=== PATIENT | female | born 1960 | race Caucasian/White ===

== ENCOUNTER 2019-12-14 09:56 | Day surgery (SDC) | payer OTHER, SELFPAY ==
[~2019-12-14] VITALS: Ht 170.2 cm; Wt 95.3 kg
[~2019-12-14 09:56] MED LIST: ALBUTEROL MDI
[2019-12-14] MEDS ORDERED: fentaNYL citrate 0.05 MG/ML VIAL ONE (11:52)
[2019-12-14] MEDS ORDERED: diphenhydrAMINE 50 MG/ML VIAL ONE (11:53)
[2019-12-14] MEDS ORDERED: MIDAZOLAM 5 MG/5 ML VIAL ONE (11:53)
[2019-12-14] MEDS ORDERED: LIDOCAINE VISCOUS 2% 20 ML UDC ONE (11:53)
[2019-12-14] MEDS ORDERED: diphenhydrAMINE 50 MG/ML VIAL IVP ONE (13:00)
[2019-12-14] MEDS ORDERED: fentaNYL citrate 0.05 MG/ML VIAL IVP ONE (13:00)
[2019-12-14] MEDS ORDERED: MIDAZOLAM 2 MG/2 ML VIAL IVP ONE (13:00)
[2019-12-14] MEDS ORDERED: ACETAMINOPHEN 325 MG SUPP RC PRN (14:00)
[2019-12-14] MEDS ORDERED: ACETAMINOPHEN 650 MG/20.3 ML UDC GT PRN (14:10)
[2019-12-14] MEDS ORDERED: SIMETHICONE 40 MG/0.6 ML PO SCH (14:30)
== END 2019-12-14 14:35 | disposition home or self-care (01) ==
LOC: MDS 09:56 → MFCC 10:23 → MDS 14:35
PROVIDERS: ATTEND Internal Medicine Gastroenterology
DX: K59.00 Constipation, unspecified (principal); K63.5 Polyp of colon; K29.70 Gastritis, unspecified, without bleeding; K29.80 Duodenitis without bleeding; F06.4 Anxiety disorder due to known physiological condition; F17.200 Nicotine dependence, unspecified, uncomplicated; M19.90 Unspecified osteoarthritis, unspecified site; Z98.890 Other specified postprocedural states; Z88.8 Allergy status to other drugs, medicaments and biological substances; Z79.899 Other long term (current) drug therapy; Z20.828 Contact with and (suspected) exposure to other viral communicable diseases
CPT/HCPCS: 43239; 45385; 81025; 88305; 88312; 88313; J1200; J2250; J3010; U0003

== ENCOUNTER 2020-05-28 13:04 | Emergency (ER) | payer OTHER, SELFPAY ==
[~2020-05-28] VITALS: Ht 170.2 cm; Wt 95.3 kg
[2020-05-28 13:11] VITALS: BP 157/77
--- NOTE | 2020-05-28 13:16 | NUR ---
PT W/C ASSISTED TO BED 9
--- NOTE | 2020-05-28 13:19 | NUR ---
ZACHERY SEXTON AT BEDSIDE FOR EVALUATION
--- NOTE | 2020-05-28 13:20 | NUR ---
59 Y/O FEMALE C/O L ANKLE PAIN x1 WEEK. PT DENIES ANY TRAUMA/INJURY. VISITED PCP WHERE XRAY SHOWED SOFT TISSUE SWELLING AND Rx STEROIDS AND NORCO WITH NO RELIEF. PT STATES PAIN IS 8/10 THAT "FEELS LIKE ITS GOING TO EXPLODE" AND "FEELS LIKE A METAL CHARLES IS GOING THROUGH THE BOTTOM OF THE FOOT". PT TOOK NORCO THIS AM WITH NO RELIEF. +NAUSEA DUE TO NORCO. DENIES V/D/SOB. ON ASSESSMENT, LIMITED ROM, SWELLING OF LEFT ANKLE, <3 SECONDS CAP REFILL WITH +2 EQUAL BILATERAL PEDAL PULSES. PT STATES PAIN IS WORSE WITH AMBULATION. PT AMBULATED WITH CANE. PT IS A/O X4 WITH EVEN AND UNLABORED RESPIRATIONS. PT LAYING IN BED WITH BED IN LOWEST POSITION, BRAKES LOCKED, X1 SIDERAIL UP. Hx CARDIAC WITH PACEMAKER IMPLANTED 02/2020, ARTHRITIS, CHRONIC PANCREATITIS ALLERGIES: COMPAZINE, DEMEROL, IMITREX
[2020-05-28] MEDS ORDERED: MORPHINE SULFATE 4 MG/ML SYR IM ONE (13:25)
--- NOTE | 2020-05-28 13:56 | NUR ---
PT TAKEN TO CT VIA MASTER
[2020-05-28 15:25] VITALS: BP 157/77
--- NOTE | 2020-05-28 15:28 | NUR ---
Patient discharged with v/s stable. Written and verbal after care instructions given and explained. Patient verbalized understanding. Ambulatory with steady gait. All questions addressed prior to discharge. Advised to follow up with PMD.
== END 2020-05-28 15:28 | disposition home or self-care (01) ==
LOC: MED 13:04
DX: M25.572 Pain in left ankle and joints of left foot (principal); J45.909 Unspecified asthma, uncomplicated; Z88.5 Allergy status to narcotic agent; Z88.8 Allergy status to other drugs, medicaments and biological substances; Z90.49 Acquired absence of other specified parts of digestive tract; Z95.0 Presence of cardiac pacemaker; Z98.890 Other specified postprocedural states
CPT/HCPCS: 73700; 96372; 99284; J2270

== ENCOUNTER 2020-06-25 20:41 | Emergency (ER) | payer OTHER ==
[~2020-06-25] VITALS: Ht 170.2 cm; Wt 95.3 kg
--- NOTE | 2020-06-25 21:45 | NUR ---
TO ER BED 4
[2020-06-25 21:48] VITALS: BP 156/79
[2020-06-25] MEDS ORDERED: ONDANSETRON 4 MG/2 ML VIAL IVP ONE (22:05)
[2020-06-25] MEDS ORDERED: KETOROLAC 30 MG/ML VIAL IVP ONE (22:05)
[2020-06-25] MEDS ORDERED: NACL 0.9% 1,000 ML IV SCH (22:05)
--- NOTE | 2020-06-25 22:05 | NUR ---
59 Y/O F BIB SELF FROM HOME, PATIENT PRESENTS TO ED WITH ABD PAIN THAT STARTED 06/20/20 WITH N&V. PT STATES SHE THINKS IT MIGHT BE PANCREATITIS, SHE HAD IT A YEAR AGO, PT TOOK PAIN MEDS THIS MORNING 2 PO NORCO 5MH, NO RELIEF. PT STATES SHE IS CONSTIPATED WITH LAST BM 06/24/20; SKIN IS PINK/WARM/DRY; AAOX4 WITH EVEN AND STEADY GAIT WITH ASSISTIVE DEVICE; LUNGS CLEAR BL; HR EVEN AND REGULAR; PT DENIES ANY FEVER, CP, SOB, OR COUGH AT THIS TIME; PATIENT STATES PAIN OF 8/10 AT THIS TIME; VSS; PATIENT POSITIONED FOR COMFORT; HOB ELEVATED; BEDRAILS UP X2; BED DOWN. ER MD MADE AWARE OF PT STATUS. ALLERGY: DEMEROL AND COMPAZINE. 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
[2020-06-25 22:22] LABS: APPEARANCE,URINE CLEAR (CLEAR); BILIRUBIN,URINE NEGATIVE (NEGATIVE); BLOOD, URINE TRACE-I (NEGATIVE); COLOR,URINE YELLOW (YELLOW); LEUKOCYTE ESTERASE ,URINE 2+ (NEGATIVE); NITRITE, URINE NEGATIVE (NEGATIVE); PH,URINE 6.5 (5.0-9.0); UGLUCOSE NEGATIVE (NEGATIVE)
[2020-06-25 22:23] LABS: BASOPHILS # (AUTO) 0.1 K/uL (0.00-0.22); BASOPHILS % (AUTO) 1.2 % (0.0-2.0); EOSINOPHILS # (AUTO) 0.1 K/uL (0-0.4); EOSINOPHILS % (AUTO) 2.2 % (0.0-4.0); HEMATOCRIT 42.9 % (36-48); HEMOGLOBIN 14.9 g/dL (12.0-16.0); MEAN CORPUSCULAR HEMOGLOBIN 30 pg (27-31); MEAN CORPUSCULAR HGB CONC 35 g/dL (33-37); MEAN CORPUSCULAR VOLUME 86.6 fL (80-94); MONOCYTES # (AUTO) 0.3 K/uL (0.8-1.0); MONOCYTES % (AUTO) 4.8 % (1.7-9.3); NEUTROPHILS # (AUTO) 4.1 K/uL (1.8-7.7); NEUTROPHILS % (AUTO) 61.8 % (42.2-75.2); PLATELET COUNT (AUTO) 210 K/uL (140-450); RED BLOOD CELL COUNT(AUTO) 4.96 MIL/uL (4.20-5.40); RED CELL DISTRIBUTION WIDTH 12.9 % (11.6-13.7); WHITE BLOOD COUNT (AUTO) 6.7 K/uL (4.8-10.8)
[2020-06-25] MEDS ORDERED: MORPHINE SULFATE 4 MG/ML SYR IVP ONE (22:30)
--- NOTE | 2020-06-25 22:35 | NUR ---
X RAY AT BEDSIDE
[2020-06-25 22:40] LABS: ALBUMIN 3.9 g/dL (3.4-5.0); ANION GAP 14.1 (8-16); CARBON DIOXIDE 25.9 mmol/L (21-32); CREATININE 0.8 mg/dL (0.6-1.3); TOTAL BILIRUBIN 0.4 mg/dL (0.0-1.0)
[2020-06-25 22:43] LABS: RBC,URINE 0-5 /HPF (0-5)
[2020-06-25] MEDS ORDERED: ONDA8TAB87 PO (22:59)
[2020-06-25] MEDS ORDERED: OMEP40EC24 PO (22:59)
[2020-06-26] MEDS ORDERED: MORPHINE SULFATE 2 MG/ML SYR IVP ONE (00:05)
[2020-06-26 00:54] VITALS: BP 156/79
--- NOTE | 2020-06-26 00:56 | NUR ---
Patient discharged with v/s stable. Written and verbal after care instructions given and explained. Patient alert, oriented and verbalized understanding of instructions. Ambulatory with to car. All questions addressed prior to discharge. ID band removed. Patient advised to follow up with PMD. Rx of OMEPRAZOLE, ONDANSETRON given. Patient educated on indication of medication including possible reaction and side effects. Opportunity to ask questions provided and answered.
== END 2020-06-26 00:55 | disposition home or self-care (01) ==
LOC: MED 20:41
DX: N39.0 Urinary tract infection, site not specified (principal); R10.13 Epigastric pain; R11.2 Nausea with vomiting, unspecified; J45.909 Unspecified asthma, uncomplicated; I51.9 Heart disease, unspecified; Z88.8 Allergy status to other drugs, medicaments and biological substances; Z95.0 Presence of cardiac pacemaker; Z90.49 Acquired absence of other specified parts of digestive tract
CPT/HCPCS: 36415; 71045; 80053; 81001; 83690; 85025; 87086; 96361; 96374; 96375; 99284; J1885; J2270; J2405; J7030

== ENCOUNTER 2021-01-02 05:53 | Day surgery (SDC) | payer OTHER, SELFPAY ==
[~2021-01-02] VITALS: Ht 167.6 cm; Wt 90.7 kg
[~2021-01-02 05:53] MED LIST changes: +OMEP40EC24 PO; +ONDA8TAB87 PO
[2021-01-02 07:46] LABS: BASOPHILS # (AUTO) 0.1 K/uL (0.00-0.22); BASOPHILS % (AUTO) 0.9 % (0.0-2.0); EOSINOPHILS # (AUTO) 0.2 K/uL (0-0.4); EOSINOPHILS % (AUTO) 3.3 % (0.0-4.0); HEMATOCRIT 39.7 % (36-48); HEMOGLOBIN 13.7 g/dL (12.0-16.0); LYMPHOCYTES # (AUTO) 2.2 K/uL (2.5-16.5); LYMPHOCYTES % (AUTO) 33.3 % (20.5-51.1); MEAN CORPUSCULAR HEMOGLOBIN 31 pg (27-31); MEAN CORPUSCULAR HGB CONC 35 g/dL (33-37); MEAN CORPUSCULAR VOLUME 89.2 fL (80-94); MONOCYTES # (AUTO) 0.4 K/uL (0.8-1.0); MONOCYTES % (AUTO) 6.3 % (1.7-9.3); NEUTROPHILS # (AUTO) 3.6 K/uL (1.8-7.7); NEUTROPHILS % (AUTO) 56.2 % (42.2-75.2); PLATELET COUNT (AUTO) 213 K/uL (140-450); RED BLOOD CELL COUNT(AUTO) 4.45 MIL/uL (4.20-5.40); RED CELL DISTRIBUTION WIDTH 13.3 % (11.6-13.7); WHITE BLOOD COUNT (AUTO) 6.5 K/uL (4.8-10.8)
[2021-01-02] MEDS ORDERED: METOCLOPRAMIDE 10 MG/2 ML INJ VIAL ONE (07:49)
[2021-01-02] MEDS ORDERED: KETAMINE 500 MG/5 ML VIAL ONE (07:49)
[2021-01-02] MEDS ORDERED: ONDANSETRON 4 MG/2 ML VIAL ONE (07:49)
[2021-01-02] MEDS ORDERED: MIDAZOLAM 2 MG/2 ML VIAL ONE (07:49)
[2021-01-02] MEDS ORDERED: DEXAMETHASONE 4 MG/ML VIAL ONE (07:49)
[2021-01-02] MEDS ORDERED: PROPOFOL 200 MG/20 ML VIAL IV ONE (07:49)
[2021-01-02] MEDS ORDERED: LIDOCAINE MPF 2% 100 MG/5 ML VIAL INJ ONE (07:50)
[2021-01-02 08:08] LABS: ALBUMIN 3.8 g/dL (3.4-5.0); ANION GAP 15.6 (8-16); CARBON DIOXIDE 24.8 mmol/L (21-32); CREATININE 0.8 mg/dL (0.6-1.3); POTASSIUM 3.4 mmol/L (3.5-5.1); TOTAL BILIRUBIN 0.4 mg/dL (0.0-1.0)
[2021-01-02] MEDS ORDERED: LACTATED RINGERS 1,000 ML IV SCH (08:10)
[2021-01-02] MEDS ORDERED: ONDANSETRON 4 MG/2 ML VIAL IVP PRN (08:10)
[2021-01-02] MEDS ORDERED: fentaNYL citrate 0.05 MG/ML VIAL IVP PRN (08:10)
[2021-01-02] MEDS ORDERED: HYDROcodone/APAP 5/325 MG 1 TAB TAB PO PRN (08:10)
== END 2021-01-02 10:42 | disposition home or self-care (01) ==
LOC: MDS 05:53 → MFCC 05:53 → MDS 10:42
PROVIDERS: ATTEND Internal Medicine Gastroenterology
DX: Z09 Encounter for follow-up examination after completed treatment for conditions other than malignant neoplasm (principal); I10 Essential (primary) hypertension; K21.9 Gastro-esophageal reflux disease without esophagitis; J45.909 Unspecified asthma, uncomplicated; I48.91 Unspecified atrial fibrillation; G25.81 Restless legs syndrome; M19.90 Unspecified osteoarthritis, unspecified site; F41.9 Anxiety disorder, unspecified; F17.200 Nicotine dependence, unspecified, uncomplicated; Z95.0 Presence of cardiac pacemaker; Z79.899 Other long term (current) drug therapy; Z20.822 Contact with and (suspected) exposure to COVID-19
CPT/HCPCS: 36415; 45378; 71045; 80053; 85025; 87426; 93005; J1100; J2001; J2250; J2405; J2704; J2765